=== PATIENT | male | born 1975 | race Two or more races ===

== ENCOUNTER 2024-09-30 09:30 | Outpatient (RCR) | payer MEDICAID, SELFPAY ==
--- NOTE | 2024-09-13 12:04 | PT.OIERPT ---
PT OP Initial Eval Patient Information Outpatient Physical Therapy Treatment Date: 09/13/24 Visit Reasons: right shoulder pain Medical Diagnosis: Right Shoulder Pain Treatment Dx #1: Right Shoulder Pain Treatment Dx #2: Right Shoulder Mobility Deficits Start of Care: 09/13/24 Date of Onset: 10/25/23 Smoking Status Smoking Status: Never smoker Initial Assessment Subjective: Pt is a 49 y/o male reports of chronic right shoulder pain s/p fall 10/25/23. Pt dislocated the shoulder and now is having difficulty picking up his arm. Pt has limitation with lifting, self care, chores, cooking, cleaning, and performing recreational activities. No MRI has been done thus far. Objective: Right Shoulder PROM: all motions are WFL Right Shoulder AROM Flexion: 90 deg Abduction: 90 def ER and IR: unable Right Shoulder MMTs grossly 3-/5 Right Scapula MMTs: grossly Special Test (+) drop arm test Palpation: TTP supraspinatus tendon Assessment: Pt demonstrate right shoulder mobility and strength deficits consistent with rotator cuff involvement leading to difficulty with ADLs. Pt will attempt physical therapy if pain persist Pt will be refer back to provider for further consultation. Short Term and Jail Goals 1) Increase right shoulder AROM WFL in 6 wks to be able to perform overhead motions 2) Decrease shoulder pain to 2/10 in 6 wks to be able to perform lifting activities 3) Increase right shoulder MMTs grossly to 4-/5 in 6 wks to be able to perform recreational activities 4) Increase right scapula MMTs grossly to 3+/5 in 6 wks to be abnle to perform self care activities 5) Indep with HEP Treatment Plan 1) Manual Therapy 2) Therapeutic Activities 3) Therapeutic Exercises 4) Modalities (ice, heat) Frequency and Duration: 2 x wk for 6 wks Certification Dates: 09/13/24 to 12/14/24 Procedure Charges OP PT Eval Mod Complex 30 minutes: Yes
--- NOTE | 2024-09-25 10:27 | PT.ODAYNRPT ---
PT Outpatient Daily Note OP Daily Note Outpatient Physical Therapy Treatment Date: 09/25/24 Visit Reasons: right shoulder pain Subjective: Pt reports R shoulder hurts to lift and is weak. Objective: Please see flow sheet for ther ex list. Assessment: Interventions completed with minimal pain. Plan: Continue with POC. Assess response to treatment. Length of Time (minutes) of Treatment: 30 Minutes Procedure Charges Therapeutic Exercise 30 minutes: Yes
--- NOTE | 2024-09-30 10:39 | PT.ODAYNRPT ---
PT Outpatient Daily Note OP Daily Note Outpatient Physical Therapy Treatment Date: 09/30/24 Visit Reasons: right shoulder pain Subjective: Pt c/o R shoulder pain. Objective: Please see flow sheet for ther ex list. Assessment: Pt demonstrates poor activity tolerance due to pain response. Plan: Continue with POC. Length of Time (minutes) of Treatment: 30 Minutes Procedure Charges Therapeutic Exercise 30 minutes: Yes
== END 2024-09-30 23:59 | disposition home or self-care (01) ==
LOC: CPTX 09:30
PROVIDERS: PCP Physician Assistant; Referring Provider Physician Assistant; Visit Provider Physician Assistant
DX: M25.511 Pain in right shoulder (principal); S43.004D Unspecified dislocation of right shoulder joint, subsequent encounter; W19.XXXD Unspecified fall, subsequent encounter
CPT/HCPCS: 97110; 97162

== ENCOUNTER 2024-10-30 09:00 | Outpatient (RCR) | payer MEDICAID, SELFPAY ==
--- NOTE | 2024-10-09 09:55 | PT.ODAYNRPT ---
PT Outpatient Daily Note OP Daily Note Outpatient Physical Therapy Treatment Date: 10/09/24 Visit Reasons: RT shoulder pain Subjective: Pt reports that he continues to have pain in his shoulder. Pt shared that he can not do heavy activities and reaching over head aggravates symptoms. Objective: Please see flow sheet for ther ex list. Assessment: Added isometric strengthening interventions, pt tolerated with minimal pain. Plan: Continue with pOC. Length of Time (minutes) of Treatment: 30 Minutes Procedure Charges Therapeutic Exercise 30 minutes: Yes
--- NOTE | 2024-10-18 09:25 | PTNOTE_ITS ---
PT Outpatient Daily Note OP Daily Note Outpatient Physical Therapy Treatment Date: 10/18/24 Visit Reasons: RT shoulder pain Subjective: Pt's shoulder feels a little better. Pt received a letter from the mail authorizing a diagnostic test in [place] for his shoulder. Pt will call facility to schedule test. Pt still has pain with overhead motions towards end ranges Objective: Please see flow chart for list of ther ex performed Assessment: improving with shoulder AROM in all plane, however, still c/o shoulder pain near supraspinatus tendon. Pt instructed to schedule diagnostic test to help determine nature of pain. Pt gave verbal consent and understanding Plan: Continue with PT Length of Time (minutes) of Treatment: 30 Minutes Procedure Charges Therapeutic Exercise 30 minutes: Yes
--- NOTE | 2024-10-21 14:54 | PT.ODAYNRPT ---
PT Outpatient Daily Note OP Daily Note Outpatient Physical Therapy Treatment Date: 10/21/24 Visit Reasons: RT shoulder pain Subjective: Pt's shoulder feels okay. Pt notice improvement with overhead motions. Objective: Please see flow chart for list of ther ex performed Assessment: tolerate exercises with minimal pain; improving with scaption and flexion AAROM on ezra exercise Plan: Continue with PT Length of Time (minutes) of Treatment: 30 Minutes Procedure Charges Therapeutic Exercise 30 minutes: Yes
--- NOTE | 2024-10-23 10:23 | PT.ODAYNRPT ---
PT Outpatient Daily Note OP Daily Note Outpatient Physical Therapy Treatment Date: 10/23/24 Visit Reasons: RT shoulder pain Subjective: Pt reports R shoulder is moving better but still has pain and clicking/popping sensation. Pt mentioned that he will be scheduling an MRI soon. Objective: Please see flow sheet for ther ex list. Assessment: Pt demonstrates poor cuff firing with active ER. Plan: Continue with pOC. Length of Time (minutes) of Treatment: 30 Minutes Procedure Charges Therapeutic Exercise 30 minutes: Yes
--- NOTE | 2024-10-28 12:54 | PT.ODAYNRPT ---
PT Outpatient Daily Note OP Daily Note Outpatient Physical Therapy Treatment Date: 10/28/24 Visit Reasons: RT shoulder pain Subjective: Pt's shoulder feels much better. Pt reports of decrease shoulder pain with overhead motions. Pt will like to finish off authorized PT sessions Objective: Please see flow chart for list of ther ex performed Assessment: demonstrate full shoulder AROM with minimal pain. Pt instructed on shoulder 4way to continue t home. Pt demonstrate exercise safely and correctly Plan: Continue with PT Length of Time (minutes) of Treatment: 30 Minutes Procedure Charges Therapeutic Exercise 30 minutes: Yes
--- NOTE | 2024-10-30 09:38 | PT.ODAYNRPT ---
PT Outpatient Daily Note OP Daily Note Outpatient Physical Therapy Treatment Date: 10/30/24 Visit Reasons: RT shoulder pain Subjective: Pt's shoulder is still in the back with end range reaching or rotating his arm backward. Objective: Please see flow chart for list of ther ex performed Assessment: assess shoulder ER AROM with noted limitation past 75 deg due to post capsule and internal rotator tightness. Pt instructed to start stretching into ER to help improved ROM. Pt demonstrate stretching safely. Plan: Continue with PT Length of Time (minutes) of Treatment: 30 Minutes Procedure Charges Therapeutic Exercise 30 minutes: Yes
== END 2024-10-31 23:59 | disposition home or self-care (01) ==
LOC: CPTX 09:00
PROVIDERS: PCP Physician Assistant; Referring Provider Physician Assistant; Visit Provider Physician Assistant
DX: M25.511 Pain in right shoulder (principal); G89.29 Other chronic pain; S43.004D Unspecified dislocation of right shoulder joint, subsequent encounter; W19.XXXD Unspecified fall, subsequent encounter
CPT/HCPCS: 97110

== ENCOUNTER 2024-11-15 09:30 | Outpatient (RCR) | payer MEDICAID, SELFPAY ==
--- NOTE | 2024-11-06 10:43 | PT.ODAYNRPT ---
PT Outpatient Daily Note OP Daily Note Outpatient Physical Therapy Treatment Date: 11/06/24 Visit Reasons: RT shoulder pain Subjective: Pt reports shoulder is doing better, notices that he has more flexibility. Pt mention that he had an MRI done Monday, will follow up with doctor in about a week for results. Objective: Please see flow sheet for ther ex list. Assessment: Pt demonstrates poor rtc recruitment into shoulder ER. Plan: Continue with poC. Length of Time (minutes) of Treatment: 30 Minutes Procedure Charges Therapeutic Exercise 30 minutes: Yes
--- NOTE | 2024-11-12 10:08 | PTNOTE_ITS ---
PT Outpatient Daily Note OP Daily Note Outpatient Physical Therapy Treatment Date: 11/12/24 Visit Reasons: RT shoulder pain Subjective: Pt c/o pain and mentioned that he still has trouble reaching out to the side with R UE. Objective: Please see flow sheet for ther ex list. Assessment: Pt demonstrates poor RTC firing compensates with trunk rotation during B ER ex ercise. Plan: Pt has one visit left. Length of Time (minutes) of Treatment: 30 Minutes Procedure Charges Therapeutic Exercise 30 minutes: Yes
--- NOTE | 2024-11-15 11:07 | PT.ODS1RPT ---
PT OP Progress/Discharge Note Date of Service: 11/15/24 Progress Note/DC Note Progress Note/Discharge Note: DC Note Patient Information Visit Reasons: RT shoulder pain Medical Diagnosis: Right Shoulder Pain Treatment Dx #1: Right Shoulder Pain Service Discharge Date: 11/15/24 Status Subjective: Pt's shoulder is much better but still as a little pain on the top of the shoulder. Pt has been to resume lifting, chores, self care, cook, clean, and performing recreational activities. Pt has not follow up with provider since his completion of the MRI. At this time Pt feels comfortable being release from care with exercises to continue at home. Objective: Right Shoulder AROM: all motions are WFL Right Shoulder MMTs: grossly 3+/5 Right Scapula MMTs: grossly 3+/5 Assessment: Pt demonstrate improvement with right shoulder AROM and strength allowing him to resume ADLs, lift, perform chores, and recreational activities with less limitation. Pt will no longer benefit from physical therapy due to plateau towards goals. Pt was instructed on HEP last session and educated to continue exercises to maintain overall mobility. Pt performed all exercises safely, thank you for your referrals. Plan: D/C home with HEP and follow up with MD OTT Procedure Charges Therapeutic Exercise 30 minutes: Yes
== END 2024-12-01 23:59 | disposition home or self-care (01) ==
LOC: CPTX 09:30
PROVIDERS: PCP Physician Assistant; Referring Provider Physician Assistant; Visit Provider Physician Assistant
DX: M25.511 Pain in right shoulder (principal); S43.004D Unspecified dislocation of right shoulder joint, subsequent encounter; W19.XXXD Unspecified fall, subsequent encounter
CPT/HCPCS: 97110